=== PATIENT | female | born 1970 | race Caucasian/White ===

== ENCOUNTER → 2017-03-30 | Outpatient (CLI) | payer BC ==
--- NOTE | 2017-03-30 09:10 | XR ---
EXAMINATION TYPE: XR chest 2V DATE OF EXAM: 03/30/2017 COMPARISON: NONE HISTORY: Chest pain TECHNIQUE: Frontal and lateral views of the chest are obtained. FINDINGS: There is no focal air space opacity. No evidence for pneumothorax. No pleural effusion. The cardiac silhouette size is within normal limits. The osseous structures are grossly intact. IMPRESSION: 1. No acute cardiopulmonary process.
--- NOTE | 2017-03-30 12:01 | ECHOF ---
Referral Reason:[id number] MD M19.90 CA MEASUREMENTS -------- HEIGHT: 160.0 cm WEIGHT: 63.5 kg BP: 113/85 RVIDd: 2.8 cm (< 3.3) IVSd: 0.9 cm (0.6 - 1.1) LVIDd: 3.6 cm (3.9 - 5.3) LVPWd: 0.8 cm (0.6 - 1.1) IVSs: 1.1 cm LVIDs: 2.3 cm LVPWs: 1.4 cm LA Diam: 2.5 cm (2.7 - 3.8) LAESV Index (A-L): 20.14 ml/m Ao Diam: 2.7 cm (2.0 - 3.7) AV Cusp: 1.9 cm (1.5 - 2.6) MV EXCURSION: 18.894 mm (> 18.000) MV EF SLOPE: 125 mm/s (70 - 150) EPSS: 0.3 cm MV E Govind: 0.85 m/s MV DecT: 180 ms MV A Govind: 0.58 m/s MV E/A Ratio: 1.47 RAP: 5.00 mmHg RVSP: 18.11 mmHg FINDINGS -------- Sinus rhythm. This was a technically good study. The left ventricular size is normal. Left ventricular wall thickness is normal. Overall left ventricular systolic function is normal with, an EF between 60 - 65 %. The right ventricle is normal in size. Normal LA size by volume 22+/-6 ml/m2. The right atrium is normal in size. The aortic valve is trileaflet and appears structurally normal. The mitral valve is normal. There is trace mitral regurgitation. Mild tricuspid regurgitation present. Right ventricular systolic pressure is normal at < 35 mmHg. There is no pulmonic regurgitation present. The aortic root size is normal. Normal inferior vena cava with normal inspiratory collapse consistent with estimated right atrial pressure of 5 mmHg. There is no pericardial effusion. CONCLUSIONS -------- 1. Sinus rhythm. 2. The aortic root size is normal. 3. Normal inferior vena cava with normal inspiratory collapse consistent with estimated right atrial pressure of 5 mmHg. 4. There is no pericardial effusion. 5. This was a technically good study. 6. Left ventricular wall thickness is normal. 7. Overall left ventricular systolic function is normal with, an EF between 60 - 65 %. 8. Normal LA size by volume 22+/-6 ml/m2. 9. The aortic valve is trileaflet and appears structurally normal. 10. There is trace mitral regurgitation. 11. Mild tricuspid regurgitation present. 12. There is no pulmonic regurgitation present. LINE SERVICE SUPERVISOR: Juani Matson RDCS
--- NOTE | 2017-03-30 12:34 | P.STRESS ---
- Stress Test Note Stress Test Results/Findings: Exam Performed: stress test Exam Date: 03/30/17 Height: 5 ft 3 in Weight: 63.503 kg Protocol: ewelina Stage: 3 Duration of Exercise: 9:07 Resting Heart Rate: 70 Resting Blood Pressure: 113/85 Maximum Achieved Heart Rate: 147 Maximum Achieved Blood Pressure: 143/66 85% PMHR: 148 100% PMHR: 174 METS: 10.5 Technologist Comment: Stress Test Results/Findings: Baseline rhythm is sinus mechanism, right axis deviation. Patient exercised on Ewelina protocol for 9 minutes 7 seconds reaching a peak rate of 147 bpm which is equal to 84% maximum predicted heart rate. Test was terminated secondary to fatigue, there was no chest pain. EKG monitoring showed no evidence of ischemic ST segment changes. Impression: 1. Average exercise tolerance. 2. Normal EKG response to exercise with no evidence of exercise induced ischemia. Of note the patient did not achieve 85% of her maximum predicted heart rate but was close.
== END | disposition home or self-care (01) ==
LOC: RADNMMAIN 08:40
PROVIDERS: ATTEND Family Medicine
DX: Z00.00 Encounter for general adult medical examination without abnormal findings (principal); Z82.49 Family history of ischemic heart disease and other diseases of the circulatory system
CPT/HCPCS: 71020; 93017; 93306

== ENCOUNTER → 2017-04-09 | Outpatient (CLI) | payer BC ==
--- NOTE | 2017-04-09 09:33 | BD ---
EXAMINATION TYPE: MG DEXA axial skeleton. DATE OF EXAM: 04/09/2017 COMPARISON: NONE CLINICAL HISTORY: Osteoarthritis per order. Height: 5 FT 3 IN Weight: 139 FRAX RISK QUESTIONS: Alcohol (3 or more units per day): NO Family History (Parent hip fracture): NO Glucocorticoids (More than 3mos): NO (Ex: prednisone, prednisolone, methylprednisolone, dexamethasone, and hydrocortisone). History of Fracture in Adulthood: NO Secondary Osteoporosis: 1. Type 1 Diabetes: NO 2. Hyperthyroidism: NO 3. Menopause before 45: NO 4. Malnutrition: NO 5. Chronic liver disease: NO Rheumatoid Arthritis: NO Current Tobacco Use: YES RISK FACTORS HISTORY OF: Active: YES If Premenopausal, do you have irregular periods: YES MEDICATIONS: Additional Medications: OMEPRAZOLE, INHALER JUST STARTED ONE MONTH Additional History: EXAM MEASUREMENTS: Bone mineral densitometry was performed using the August System. Bone mineral density as measured about the Lumbar spine is: ----- L1-L4(G/cm2): 1.094 T Score Values are as follows: ----- L2: -1.1 ----- L3: -0.7 ----- L4: -0.8 ----- L1-L4: -0.7 BASELINE Bone mineral density about the R hip (g/cm2): 0.837 Bone mineral density about the L hip (g/cm2): 0.857 T Score values are as follows: -----R Neck: -1.4 -----L Neck: -1.3 -----R Total: -1.0 -----L Total: -1.1 BASELINE IMPRESSION: Osteopenia (T Score between -2.5 and -1 as noted by T score values at femoral neck level in the bilat eral hips. There is slightly increased risk of fracture and the patient may be considered for treatme nt. Re-Screen 2-5 years. NOTE: T-SCORE=SD OF THE YOUNG ADULT MEAN.
== END ==
LOC: RADBDWWP 08:05
PROVIDERS: ATTEND Family Medicine
DX: M85.851 Other specified disorders of bone density and structure, right thigh (principal); M85.852 Other specified disorders of bone density and structure, left thigh
CPT/HCPCS: 77080